=== PATIENT | male | born 1930 | race Caucasian/White ===

== ENCOUNTER 2021-09-30 09:08 | Emergency (ER) | payer OTHER ==
--- OUTSIDE RECORDS SUMMARY | 2021-09-30 09:12 | XMS REPORT | Continuity of Care Document ---
:1930 Author Organization [facility] Address [address] [place] [address] Dr. Vincent [address] [place] [id number] Care Team Providers Name Role Phone JOSE A Attending Clinician Unavailable [facility] Admitting Clinician Unavailable Problems This patient has no known problems. Allergies, Adverse Reactions, Alerts This patient has no known allergies or adverse reactions. Medications This patient has no known medications. Procedures This patient has no known procedures. Encounters Start End Encounter Admission Attending Care Care Encounter Source Date/Time Date/Time Type Type Clinicians Facility Department ID 2020-03-13 2020-03-13 Outpatient JOSE A [facility] [id number] [place] 00:00:00 00:00:00 ABE [address] Results This patient has no known results.
--- NOTE | 2021-09-30 10:27 | RAD REPORT ---
EXAM DESCRIPTION: RAD - Hip Left 2 View - 09/30/2021 10:14 am CLINICAL HISTORY: PAIN COMPARISON: No comparisons FINDINGS: No acute fracture. No malalignment. No significant focal degenerative changes. IMPRESSION: No acute osseous abnormality involving the left hip.
--- NOTE | 2021-09-30 10:45 | EDPHYS ---
Physician Documentation [facility] Name: Victor M Rizo Age: 89 yrs Sex: Male : 1930 Arrival Date: 09/30/2021 Time: 09:11 Bed 4 Private MD: Victor M Dash T ED Physician Abimael Fraser HPI: 09/30 10:44 This 89 yrs old Male presents to ER via Wheelchair with complaints of Hip Pain. ma2 10:44 The patient or guardian reports pain. The complaints affect the left leg. Associated ma2 signs and symptoms: Pertinent negatives: anorexia, dizziness, fever, incontinence. Severity of symptoms: At their worst the symptoms were mild, in the emergency department the symptoms are unchanged. The patient has not experienced similar symptoms in the past. 10:44 No trauma. ma2 Historical: - PMHx: 09:20 Hypertension; Hypothyroidism; al4 - Immunization history:: Adult Immunizations up to date, Client reports receiving the 2nd dose of the Covid vaccine, Flu vaccine is up to date. - Social history:: Smoking status: Patient denies any tobacco usage or history of. - Family history:: not pertinent. ROS: 10:44 Constitutional: Negative for fever, chills, and weight loss. ma2 10:44 All other systems are negative. Exam: 10:44 Constitutional: This is a well developed, well nourished patient who is awake, alert, ma2 and in no acute distress. Chest/axilla: Normal chest wall appearance and motion. Nontender with no deformity. No lesions are appreciated. Cardiovascular: Regular rate and rhythm with a normal S1 and S2. No gallops, murmurs, or rubs. Normal PMI, no JVD. No pulse deficits. Respiratory: Lungs have equal breath sounds bilaterally, clear to auscultation and percussion. No rales, rhonchi or wheezes noted. No increased work of breathing, no retractions or nasal flaring. Abdomen/GI: Soft, non-tender, with normal bowel sounds. No distension or tympany. No guarding or rebound. No evidence of tenderness throughout. Skin: Warm, dry with normal turgor. Normal color with no rashes, no lesions, and no evidence of cellulitis. MS/ Extremity: Pulses equal, no cyanosis. Neurovascular intact. Full, normal range of motion. Neuro: Awake and alert, GCS 15, oriented to person, place, time, and situation. Cranial nerves II-XII grossly intact. Motor strength 5/5 in all extremities. Sensory grossly intact. Cerebellar exam normal. Normal gait. Vital Signs: 09:27 BP 135 / 70; Pulse 96; Resp 18; Temp 98.9; Pulse Ox 99% ; Weight 63.05 kg; Height 6 ft. al4 (182.88 cm); Pain 5/10; 10:14 BP 125 / 66; Pulse 87; Resp 18 S; Pulse Ox 98% on R/A; al4 10:30 BP 139 / 93; Pulse 87; Resp 18 S; Pulse Ox 99% on R/A; al4 09:27 Body Mass Index 18.85 (63.05 kg, 182.88 cm) al4 MDM: 09:25 Patient medically screened. ma2 10:44 Differential diagnosis: bursitis, arthritis, strain. Data reviewed: vital signs, nurses ma2 notes, EMS record. Counseling: I had a detailed discussion with the patient and/or guardian regarding: the historical points, exam findings, and any diagnostic results supporting the discharge/admit diagnosis, the presence of at least one elevated blood pressure reading (>120/80) during this emergency department visit, the need for outpatient follow up. Response to treatment: the patient's symptoms have markedly improved after treatment. 09/30 09:30 Order name: XRAY Hip LEFT 2 view; Complete Time: 10:29 ma2 Administered Medications: No medications were administered Disposition Summary: 09/30/21 10:45 Discharge Ordered Location: Home ma2 Condition: Stable ma2 Diagnosis - Pain in left hip ma2 Followup: ma2 - With: Private Physician - When: Tomorrow - Reason: Wound Recheck, If symptoms return Discharge Instructions: - Discharge Summary Sheet ma2 - Joint Pain ma2 - Musculoskeletal Pain ma2 Forms: - Medication Reconciliation Form ma2 - Thank You Letter ma2 - Antibiotic Education ma2 - Prescription Opioid Use ma2 Prescriptions: - Cyclobenzaprine 10 mg Oral Tablet - take 1 tablet by ORAL route every 8 hours As needed; 30 tablet; Refills: 0, ma2 Product Selection Permitted - Diclofenac Sodium 75 mg Oral Tablet Sustained Release - take 1 tablet by ORAL route 2 times per day; 30 tablet; Refills: 0, Product ma2 Selection Permitted Signatures: Dispatcher [employer] Abimael Ball MD MD ma2 Eliud Kline
--- NOTE | 2021-09-30 10:45 | ER ---
Nurse's Notes [facility] Name: Victor M Rizo Age: 89 yrs Sex: Male : 1930 Arrival Date: 09/30/2021 Time: 09:11 Bed 4 Private MD: Victor M Dash T Diagnosis: Pain in left hip Presentation: 09/30 09:17 Chief complaint: Patient states: "I woke up a couple nights ago and noticed my hip was al4 hurting." Patient states it hurts more with activity at a 10/10, but stays at a 5/10 pain at rest. Denies recent injury or fall. Coronavirus screen: Vaccine status: Patient reports receiving the 2nd dose of the covid vaccine. At this time, the client does not indicate any symptoms associated with coronavirus-19. Ebola Screen: No symptoms or risks identified at this time. Initial Sepsis Screen: Does the patient meet any 2 criteria? No. Patient's initial sepsis screen is negative. Does the patient have a suspected source of infection? No. Patient's initial sepsis screen is negative. Risk Assessment: Do you want to hurt yourself or someone else? Patient reports no desire to harm self or others. 09:17 Method Of Arrival: Wheelchair al4 09:17 Acuity: MAHOGANY 3 al4 09:17 Onset of symptoms was September 28, 2021. al4 Historical: - PMHx: 09:20 Hypertension; Hypothyroidism; al4 - Immunization history:: Adult Immunizations up to date, Client reports receiving the 2nd dose of the Covid vaccine, Flu vaccine is up to date. - Social history:: Smoking status: Patient denies any tobacco usage or history of. - Family history:: not pertinent. Screenin:28 Abuse screen: Denies threats or abuse. Nutritional screening: No deficits noted. al4 Tuberculosis screening: No symptoms or risk factors identified. Fall Risk No fall in past 12 months (0 pts). No IV (0 pts). Ambulatory Aid- None/Bed Rest/Nurse Assist (0 pts). Gait- Normal/Bed Rest/Wheelchair (0 pts) Mental Status- Oriented to own ability (0 pts). Total Jose Fall Scale indicates No Risk (0-24 pts). Assessment: 09:29 General: Appears in no apparent distress. comfortable, Behavior is calm, cooperative. al4 Pain: Complains of pain in left hip Pain currently is 5 out of 10 on a pain scale. at worst was 10 out of 10 on a pain scale. Aggravated by increased activity. Neuro: Level of Consciousness is awake, alert, obeys commands, Oriented to person, place, time, situation. Cardiovascular: Heart tones present Capillary refill < 3 seconds Patient's skin is warm and dry. Respiratory: Airway is patent Respiratory effort is even, unlabored, Respiratory pattern is regular, symmetrical, Breath sounds are clear bilaterally. GI: No signs and/or symptoms were reported involving the gastrointestinal system. Bowel sounds present X 4 quads. : No signs and/or symptoms were reported regarding the genitourinary system. EENT: No signs and/or symptoms were reported regarding the EENT system. Derm: No signs and/or symptoms reported regarding the dermatologic system. Musculoskeletal: Reports pain in L hip since Sunday . Denies fall or known injury. 10:16 Reassessment: No changes from previously documented assessment. Patient and/or family al4 updated on plan of care and expected duration. Pain level reassessed. Patient is alert, oriented x 3, equal unlabored respirations, skin warm/dry/pink. Vital Signs: 09:27 BP 135 / 70; Pulse 96; Resp 18; Temp 98.9; Pulse Ox 99% ; Weight 63.05 kg; Height 6 ft. al4 (182.88 cm); Pain 5/10; 10:14 BP 125 / 66; Pulse 87; Resp 18 S; Pulse Ox 98% on R/A; al4 10:30 BP 139 / 93; Pulse 87; Resp 18 S; Pulse Ox 99% on R/A; al4 09:27 Body Mass Index 18.85 (63.05 kg, 182.88 cm) al4 ED Course: 09:11 Patient arrived in ED. mr 09:11 Victor M Dash MD is Private Physician. mr 09:20 Triage completed. al4 09:25 Abimael Fraser MD is Attending Physician. ma2 09:28 Arm band placed on. al4 09:28 Patient has correct armband on for positive identification. Placed in gown. Bed in low al4 position. Call light in reach. Side rails up X 1. family w patient. Pulse ox on. NIBP on. Door closed. Noise minimized. Warm blanket given. 10:13 Eliud Kline is Primary Nurse. al4 10:14 XRAY Hip LEFT 2 view In Process Unspecified. EDMS 10:57 No provider procedures requiring assistance completed. Patient did not have IV access al4 during this emergency room visit. Administered Medications: No medications were administered Outcome: 10:45 Discharge ordered by . ma2 10:57 Discharged to home via wheelchair, with family. al4 10:57 Condition: stable 10:57 Discharge instructions given to patient, family, Instructed on discharge instructions, follow up and referral plans. medication usage, Demonstrated understanding of instructions, follow-up care, medications, Prescriptions given X 2. 10:57 Patient left the ED. al4 Signatures: Dispatcher [employer] [facility] JovanySaima Mohammad, MD MD ma2 Ledbetter, Alexis al4 Corrections: (The following items were deleted from the chart) 09:45 09:27 BP 135 / 70; Pulse 96bpm; Resp 18bpm; Pulse Ox 99%; Temp 98.9F; Pain 5/10; al4 al4
[2021-09-30 11:03] VITALS: TEMP 98.9
[2021-09-30 11:06] VITALS: BP 139/93; O2SAT 99
== END 2021-09-30 10:57 | disposition home or self-care (01) ==
LOC: ER 09:08
DX: M25.552 Pain in left hip (principal)
CPT/HCPCS: 99283

== ENCOUNTER 2021-10-30 23:49 | Emergency (ER) | payer OTHER ==
--- OUTSIDE RECORDS SUMMARY | 2021-10-30 23:52 | XMS REPORT | Continuity of Care Document ---
:1930 Author Organization [facility] Address [address] [place] [address] Dr. Vincent [address] [place] [address] Care Team Providers Name Role Phone JOSE A Attending Clinician Unavailable [facility] Admitting Clinician Unavailable Problems This patient has no known problems. Allergies, Adverse Reactions, Alerts This patient has no known allergies or adverse reactions. Medications This patient has no known medications. Procedures This patient has no known procedures. Encounters Start End Encounter Admission Attending Care Care Encounter Source Date/Time Date/Time Type Type Clinicians Facility Department ID 2020-03-13 2020-03-13 Outpatient JOSE A [facility] [id number] [place] 00:00:00 00:00:00 ABE [address] Results This patient has no known results.
[2021-10-31] MEDS ORDERED: MORPHINE 4 MG/ML SYR ONE (00:47)
[2021-10-31 00:58] LABS: Absolute Lymphocytes (CBC) 0.7 K/uL (0.7-4.9); Hematocrit 36.2 % (39.6-49.0); Lymphocytes % 6.1 % (15.3-44.8); MPV 8.8 fL (7.6-11.3); RBC Red Blood Cell Count 3.77 M/uL (4.33-5.43)
[2021-10-31 01:06] LABS: Albumin 2.5 g/dL (3.4-5.0); Bilirubin Total 0.6 mg/dL (0.2-1.0); Potassium 4.1 mmol/L (3.5-5.1); Protein, Total 7.7 g/dL (6.4-8.2)
--- NOTE | 2021-10-31 01:45 | EDPHYS ---
Physician Documentation [facility] Name: Victor M Rizo Age: 89 yrs Sex: Male : 1930 Arrival Date: 10/30/2021 Time: 23:54 Bed 12 Private MD: ED Physician Chris Paez HPI: 10/31 00:25 This 89 yrs old Male presents to ER via EMS with complaints of Back Pain. pm1 00:25 The patient presents with pain that is chronic, with no known mechanism of injury. The pm1 symptoms are located in the low back. Onset: The symptoms/episode began/occurred 1 month(s) ago. The pain does not radiate. Associated signs and symptoms: Pertinent negatives:. The problem was sustained from a chronic condition. Modifying factors: The patient symptoms are alleviated by nothing, the patient symptoms are aggravated by movement. Severity of symptoms: in the emergency department the symptoms are actually worse. The patient has experienced similar episodes in the past, multiple times. The patient has not recently seen a physician. Patient reports 89-year-old patient presenting to the ER with low back pain. He states since last visit here for hip pain he has had low back pain, right shoulder, and left shoulder pain for the past month. Patient attributes his pain to arthritis. No injury, falls, or trauma. Historical: - Home Meds: 00:10 Levothroid 88 mcg Oral tab [Active]; Plavix 75 mg Oral tab once daily [Active]; sv1 pravastatin 40 mg Oral tab once daily [Active]; quinapril 20 mg Oral tab 1 tab once daily [Active]; sucralfate 1 gram Oral tab 1 tab 4 times per day [Active]; - PMHx: 00:10 Hypertension; Hypothyroidism; sv1 - Immunization history:: Client reports receiving the 2nd dose of the Covid vaccine. - Social history:: Patient/guardian denies using Smoking status: Patient denies any tobacco usage or history of. ROS: 00:25 Constitutional: Negative for fever, chills, and weight loss, Cardiovascular: Negative pm1 for chest pain, palpitations, and edema, Respiratory: Negative for shortness of breath, cough, wheezing, and pleuritic chest pain, Abdomen/GI: Negative for abdominal pain, nausea, vomiting, diarrhea, and constipation. 00:25 Skin: Negative for injury, rash, and discoloration. 00:25 Back: Positive for of the low back area, pain. 00:25 MS/extremity: Positive for of the right and left shoulder pain, Negative for injury or acute deformity, decreased range of motion, deformity. 00:25 All other systems are negative. Exam: 00:25 Constitutional: This is a well developed, well nourished patient who is awake, alert, pm1 and in no acute distress. Head/Face: Normocephalic, atraumatic. 00:25 Skin: Warm, dry with normal turgor. Normal color with no rashes, no lesions, and no evidence of cellulitis. MS/ Extremity: Pulses equal, no cyanosis. Neurovascular intact. Full, normal range of motion. 00:25 Eyes: Exam is negative for acute changes, Extraocular movements: no acute changes, Conjunctiva: no acute changes, no injection. 00:25 ENT: Exam is negative for acute changes, Mouth: no acute changes, Lips: normal, moist, Oral mucosa: normal, pink and intact, moist. 00:25 Cardiovascular: Exam negative for acute changes, Rate: normal, Rhythm: regular, Pulses: no pulse deficits are appreciated, Heart sounds: normal. 00:25 Respiratory: Exam negative for acute changes, respiratory distress, shortness of breath, Breath sounds: are clear throughout. 00:25 Back: vertebral tenderness, is appreciated at lumbar spine, muscle spasm, is not present. 00:25 Neuro: Exam negative for acute changes, Orientation: is normal, Mentation: is normal, Motor: is normal, moves all fours, Sensation: is normal, no obvious gross deficits. Vital Signs: 00:04 BP 134 / 68; Pulse 95 LA; Resp 16 S; Temp 98.3(O); Pulse Ox 94% on R/A; sv1 02:35 BP 124 / 66 LA Supine (auto/reg); Pulse 97 MON; Resp 16 S; Pulse Ox 95% on R/A; Pain sv1 4/10; MDM: 00:17 Patient medically screened. pm1 00:23 Data reviewed: vital signs. pm1 01:43 Counseling: I had a detailed discussion with the patient and/or guardian regarding: the pm1 historical points, exam findings, and any diagnostic results supporting the discharge/admit diagnosis, lab results, radiology results, the need for outpatient follow up, a family practitioner, to return to the emergency department if symptoms worsen or persist or if there are any questions or concerns that arise at home. 10/31 00:25 Order name: CBC with Diff pm1 10/31 00:25 Order name: CMP; Complete Time: : pm1 10/31 00:25 Order name: CT Lumbar Spine Wo Con pm1 10/31 00:25 Order name: CBC with Automated Diff; Complete Time: : EDMS 10/31 00:27 Order name: Shoulder Right (2 View) XRAY pm1 10/31 00:27 Order name: Shoulder Left (2 View) XRAY pm1 10/31 00:25 Order name: IV Saline Lock; Complete Time: 00:43 pm1 Administered Medications: 00:54 Drug: morphine 4 mg Route: IVP; Site: right antecubital; sv1 01:34 Follow up: Response: No adverse reaction; Pain is decreased sv1 02:34 Follow up: Response: No adverse reaction; Pain is decreased sv1 01:50 Drug: Lidoderm Patch 5 % (700 mg/patch) 1 patches Route: Topical; Site: affected area; sv1 02:34 Follow up: Response: No adverse reaction; Pain is decreased sv1 Disposition: 03:22 Co-signature as Attending Physician, Chris Paez MD. pkl Disposition Summary: 10/31/21 01:45 Discharge Ordered Location: Home pm1 Problem: new pm1 Symptoms: have improved pm1 Condition: Stable pm1 Diagnosis - Low back pain - degenerative disc disease pm1 Followup: pm1 - With: Emergency Department - When: As needed - Reason: Worsening of condition Followup: pm1 - With: Private Physician - When: 2 - 3 days - Reason: Recheck today's complaints, Continuance of care, Re-evaluation by your physician Discharge Instructions: - Discharge Summary Sheet pm1 - Degenerative Disk Disease pm1 - What You Need to Know About Chronic Back Pain pm1 Forms: - Medication Reconciliation Form pm1 - Thank You Letter pm1 - Antibiotic Education pm1 - Prescription Opioid Use pm1 Prescriptions: - Tylenol-Codeine #3 300 mg-30 mg Oral - take 1 tablet by ORAL route every 8 hours As needed; 12 tablet; Refills: 0, pm1 Product Selection Permitted - Lidoderm 5 % Topical adhesive patch,medicated - apply 1 patch by TRANSDERMAL route once daily As needed 12 hours on and 12 pm1 hours off in a 24 hour period; 10 patch; Refills: 0, Product Selection Permitted Signatures: Dispatcher [employer] Chris Segovia MD MD pkl Kodak Denis, TARIFF COMPILING CLERK TARIFF COMPILING CLERK pm1 Harpreet Day, RN RN sv1
--- NOTE | 2021-10-31 01:45 | ER ---
Nurse's Notes [facility] Name: Victor M Rizo Age: 89 yrs Sex: Male : 1930 Arrival Date: 10/30/2021 Time: 23:54 Bed 12 Private MD: Diagnosis: Low back pain-degenerative disc disease Presentation: 10/31 00:08 Chief complaint: Patient states: low back and right shoulder pain 07/17. Coronavirus sv1 screen: Client denies travel out of the [place] in the last 14 days. Ebola Screen: No symptoms or risks identified at this time. Initial Sepsis Screen: Does the patient meet any 2 criteria? No. Patient's initial sepsis screen is negative. Risk Assessment: Do you want to hurt yourself or someone else? Patient reports no desire to harm self or others. Onset of symptoms was October 24, 2021. 00:08 Acuity: MAHOGANY 3 sv1 00:08 Method Of Arrival: EMS: [facility] sv1 00:12 Initial Sepsis Screen: Does the patient have a suspected source of infection? No. sv1 Patient's initial sepsis screen is negative. Triage Assessment: 00:04 General: Appears distressed, uncomfortable. General: Behavior is cooperative, sv1 appropriate for age. Pain: Complains of pain in back. Musculoskeletal: pain only. Historical: - Home Meds: 00:10 Levothroid 88 mcg Oral tab [Active]; Plavix 75 mg Oral tab once daily [Active]; sv1 pravastatin 40 mg Oral tab once daily [Active]; quinapril 20 mg Oral tab 1 tab once daily [Active]; sucralfate 1 gram Oral tab 1 tab 4 times per day [Active]; - PMHx: 00:10 Hypertension; Hypothyroidism; sv1 - Immunization history:: Client reports receiving the 2nd dose of the Covid vaccine. - Social history:: Patient/guardian denies using Smoking status: Patient denies any tobacco usage or history of. Screenin:07 Abuse screen: Denies threats or abuse. Nutritional screening: No deficits noted. sv1 Tuberculosis screening: No symptoms or risk factors identified. Fall Risk Fall in past 12 months (25 points). Secondary diagnosis (15 points) No IV (0 pts). Ambulatory Aid- None/Bed Rest/Nurse Assist (0 pts). Gait- Weak (10 pts.). Mental Status- Oriented to own ability (0 pts). Total Jose Fall Scale indicates Low Risk Score (25-44 pts). Fall prevention measures have been instituted. Side Rails Up X 2 Placed close to Nursing Station Frequent Obs/Assesments occuring. Assessment: 00:13 Reassessment: DIONNE. CC low back and right shoulder pain. He was seen here about a week sv1 ago for the same complaint.. 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 02:37 Neuro: No deficits noted. sv1 02:37 Reassessment: All labs and imaging completed. Cleared for discharge to home by the 1 provider. Transferred via wheelchair van service. . Vital Signs: 00:04 BP 134 / 68; Pulse 95 LA; Resp 16 S; Temp 98.3(O); Pulse Ox 94% on R/A; sv1 02:35 BP 124 / 66 LA Supine (auto/reg); Pulse 97 MON; Resp 16 S; Pulse Ox 95% on R/A; Pain sv1 410; ED Course: 10/30 23:54 Patient arrived in ED. lp1 10/31 00:03 Kodak Denis NP is PHCP. pm1 00:03 Chris Paez MD is Attending Physician. pm1 00:04 Harpreet Day, ZACHARY is Primary Nurse. sv1 00:04 Arm band placed on left wrist. Patient placed on a stretcher. sv1 00:07 Patient has correct armband on for positive identification. Bed in low position. Call sv1 light in reach. Side rails up X2. 00:10 Triage completed. sv1 00:43 CBC with Automated Diff Sent. sv1 00:43 CMP Sent. sv1 00:43 CBC with Diff Sent. sv1 00:55 CT Lumbar Spine Wo Con In Process Unspecified. EDMS 01:04 Shoulder Right (2 View) XRAY In Process Unspecified. EDMS 01:04 Shoulder Left (2 View) XRAY In Process Unspecified. EDMS 02:35 No provider procedures requiring assistance completed. IV discontinued. sv1 Administered Medications: 00:54 Drug: morphine 4 mg Route: IVP; Site: right antecubital; sv1 01:34 Follow up: Response: No adverse reaction; Pain is decreased sv1 02:34 Follow up: Response: No adverse reaction; Pain is decreased sv1 01:50 Drug: Lidoderm Patch 5 % (700 mg/patch) 1 patches Route: Topical; Site: affected area; sv1 02:34 Follow up: Response: No adverse reaction; Pain is decreased sv1 Outcome: 01:45 Discharge ordered by MD. pm1 02:35 Discharged to home via wheelchair. sv1 02:35 Condition: improved 02:35 Discharge instructions given to patient. 02:42 Patient left the ED. sv1 Signatures: Dispatcher [employer] Linda Martinez RN RN lp1 Kodak Denis, SAMMI CAREER EDUCATION TEACHER pm1 Harpreet Day RN RN sv1
[2021-10-31] MEDS ORDERED: LIDOCAINE 4% PATCH ONE (02:11)
--- NOTE | 2021-10-31 08:28 | RAD REPORT ---
EXAM DESCRIPTION: RAD - Shoulder Right 2 View - 10/31/2021 1:04 am CLINICAL HISTORY: PAIN COMPARISON: No comparisons FINDINGS/IMPRESSION: No acute fracture. Slightly high-riding humeral head. Moderate right AC joint d egenerative changes. Soft tissue fullness along the superior aspect of the AC joint may be due to a j oint effusion and underlying rotator cuff pathology.
--- NOTE | 2021-10-31 08:28 | RAD REPORT ---
EXAM DESCRIPTION: RAD - Shoulder Left 2 View - 10/31/2021 1:04 am CLINICAL HISTORY: PAIN COMPARISON: No comparisons FINDINGS/IMPRESSION: No acute fracture. No malalignment. Mild left AC joint degenerative changes.
--- NOTE | 2021-10-31 14:16 | RAD REPORT ---
EXAM DESCRIPTION: CT - Spine Lumbar Wo Con - 10/31/2021 3:07 am CLINICAL HISTORY: PAIN COMPARISON: None TECHNIQUE: Contiguous axial images of lumbar spine were obtained utilizing 2 mm slice thickness at 2 mm interval reconstruction. In addition multiplanar reformats in the sagittal and coronal plane were generated and reviewed This exam was performed according to our departmental dose-optimization protocol, which includes auto mated exposure control, adjustment of the mA and/or kV according to patient size and/or use of iterat basim reconstruction technique. FINDINGS: There is diffuse bony osteopenia. There is lytic the anatomic alignment of the lumbar spin e. Vertebral body height is preserved without evidence of acute fracture or subluxation. No retrope ritoneal or paraspinal abnormality is seen. L1-2: Unremarkable L2-3: Small posterior osteophyte complex with the broad-based bulge and mild to moderate spinal can al narrowing L3-4: Degenerative disc disease with vacuum effect, posterior osteophyte complex broad-based bulge posterior facet hypertrophy moderate spinal canal narrowing L4-5: Degenerative disc disease with vacuum effect, posterior osteophyte complex and broad-based bu lge posterior facet hypertrophy hypertrophy ligamentum flavum with moderate to severe spinal canal na rrowing L5-S1: Small broad-based bulge with no compromise of the spinal canal and/or neural foramina. The visualized portions of the sacroiliac joint demonstrate degenerative changes. Visualized portions of the sacrum demonstrate to be unremarkable IMPRESSION: No acute fracture or subluxation of the lumbar spine. Diffuse bony osteopenia. Multilevel degenerative disc disease as described above. Electronically signed by: Ari Cox MD 10/31/2021 1:06 AM ENTERPRISE ARCHITECT Due to temporary technical issues with the PACS/Fluency reporting system, reports are being signed by the in house radiologist without review as a courtesy to ensure prompt reporting. The interpreting r adiologist is fully responsible for the content of the report.
[2021-10-31 18:24] VITALS: TEMP 98.3
[2021-10-31 18:25] VITALS: BP 124/66; O2SAT 95
== END 2021-10-31 02:42 | disposition home or self-care (01) ==
LOC: ER 23:49
DX: M51.36 Other intervertebral disc degeneration, lumbar region (principal); I10 Essential (primary) hypertension; E03.9 Hypothyroidism, unspecified; Z79.01 Long term (current) use of anticoagulants
CPT/HCPCS: 36415; 72131; 80053; 85025; 96374; 99284

== ENCOUNTER 2021-11-02 16:16 | Inpatient (IN) | payer OTHER ==
--- OUTSIDE RECORDS SUMMARY | 2021-11-02 16:18 | XMS REPORT | Continuity of Care Document ---
:1930 Author Organization [facility] Address [address] [place] [address] Dr. Vincent [address] [place] [id number] Care Team Providers Name Role Phone JOSE A Attending Clinician Unavailable [facility] Admitting Clinician Unavailable Problems This patient has no known problems. Allergies, Adverse Reactions, Alerts This patient has no known allergies or adverse reactions. Medications This patient has no known medications. Procedures This patient has no known procedures. Encounters Start End Encounter Admission Attending Care Care Encounter Source Date/Time Date/Time Type Type Clinicians Facility Department ID 2020-03-13 2020-03-13 Outpatient JOSE A [facility] [id number] [place] 00:00:00 00:00:00 ABE [address] Results This patient has no known results.
--- NOTE | 2021-11-02 16:55 | RAD REPORT ---
EXAM DESCRIPTION: RAD - Chest Single View - 11/02/2021 4:44 pm CLINICAL HISTORY: ams Chest pain. COMPARISON: Chest Single View dated 10/24/2017; Chest Single View dated 01/26/2016; CHEST PA AND LAT 2 VIEW dated 07/06/2015; CHEST PA AND LAT 2 VIEW dated 07/01/2013 FINDINGS: Portable technique limits examination quality. The lungs are mildly emphysematous but grossly clear. The heart is normal in size. No displaced fract ures. IMPRESSION: Mild COPD.
[2021-11-02 17:25] LABS: Protime INR 1.21
[2021-11-02 17:28] LABS: Absolute Lymphocytes (CBC) 0.7 K/uL (0.7-4.9); Hematocrit 38.2 % (39.6-49.0); Lymphocytes % 6.4 % (15.3-44.8); RBC Red Blood Cell Count 3.97 M/uL (4.33-5.43)
[2021-11-02] MEDS ORDERED: NA CHLORIDE 0.9% 250 ML ONE (17:53)
[2021-11-02 18:17] LABS: Albumin 2.1 g/dL (3.4-5.0); Bilirubin Direct 0.2 mg/dL (0-0.2); Bilirubin Total 0.4 mg/dL (0.2-1.0); Potassium 3.8 mmol/L (3.5-5.1); Protein, Total 7.4 g/dL (6.4-8.2)
[2021-11-02 19:01] LABS: Troponin High Sensitivity 65.2 pg/mL (<58.9)
--- NOTE | 2021-11-02 19:12 | ER ---
Nurse's Notes [facility] Name: Victor M Rizo Age: 89 yrs Sex: Male : 1930 Arrival Date: 11/02/2021 Time: 16:27 Bed 30 Private MD: Diagnosis: Dehydration;Elevated Troponin Presentation: 11/02 16:28 Chief complaint: EMS states: DEHYDRATION AND LUMBAR PAIN. Coronavirus screen: At this bp time, the client does not indicate any symptoms associated with coronavirus-19. Ebola Screen: No symptoms or risks identified at this time. Initial Sepsis Screen: Does the patient meet any 2 criteria? HR > 90 bpm. No. Patient's initial sepsis screen is negative. Does the patient have a suspected source of infection? No. Patient's initial sepsis screen is negative. Risk Assessment: Do you want to hurt yourself or someone else? Patient reports no desire to harm self or others. Onset of symptoms is unknown. Care prior to arrival: IV initiated. 22 GA, in the right forearm. 16:28 Method Of Arrival: EMS: [facility] bp 16:28 Acuity: MAHOGANY 3 bp Triage Assessment: 16:31 General: Appears in no apparent distress. comfortable, Behavior is calm, cooperative, bp appropriate for age. Pain: Complains of pain in low back area. EENT: No deficits noted. Neuro: Level of Consciousness is awake, alert, obeys commands, Oriented to Appropriate for age. Cardiovascular: No deficits noted. Respiratory: No deficits noted. GI: No signs and/or symptoms were reported involving the gastrointestinal system. : Reports pain in lower back. Derm: No deficits noted. Musculoskeletal: No deficits noted. Historical: - Allergies: 16:30 No Known Allergies; bp - Home Meds: 16:30 Levothroid 88 mcg Oral tab [Active]; Plavix 75 mg Oral tab once daily [Active]; bp pravastatin 40 mg Oral tab once daily [Active]; quinapril 20 mg Oral tab 1 tab once daily [Active]; sucralfate 1 gram Oral tab 1 tab 4 times per day [Active]; - PMHx: 16:30 Hypothyroidism; Hypertension; bp - Immunization history:: Adult Immunizations up to date. - Social history:: Smoking status: Patient denies any tobacco usage or history of. Screenin:30 Abuse screen: Denies threats or abuse. Denies injuries from another. Nutritional bp screening: No deficits noted. Tuberculosis screening: No symptoms or risk factors identified. Fall Risk None identified. Assessment: 16:30 General: SEE TRIAGE NOTE. bp 18:00 Reassessment: No changes from previously documented assessment. Patient and/or family bp updated on plan of care and expected duration. Pain level reassessed. 19:19 Reassessment: Patient appears in no apparent distress at this time. General: Appears tk1 slender, well groomed, well developed, Behavior is cooperative, restless. Pain: Complains of pain in left leg Pain does not radiate. Pain currently is 7 out of 10 on a pain scale. at worst was 10 out of 10 on a pain scale. Quality of pain is described as crampy, Pain began 2-3 days ago. Is intermittent, lasting a few minutes. Alleviated by repositioning, Aggravated by increased activity. Neuro: Level of Consciousness is awake, alert, obeys commands, Oriented to person, place, time, situation, Appropriate for age Melt House Drag Operator are equal bilaterally Moves all extremities. Full function Gait is unsteady, Speech is normal, Facial symmetry appears normal. Cardiovascular: No deficits noted. Denies chest pain, Heart tones S1 S2 present Capillary refill < 3 seconds is brisk Clubbing of nail beds is absent JVD is absent Rhythm is sinus rhythm. Respiratory: No deficits noted. Airway is patent. GI: No deficits noted. : No deficits noted. EENT: No deficits noted. Derm: No deficits noted. 21:09 Reassessment: Urine specimen collected and sent to lab. tk1 Vital Signs: 16:28 BP 135 / 65; Pulse 105; Resp 19; Temp 98.5; Pulse Ox 100% ; bp 17:41 BP 109 / 73; Pulse 100; Resp 25; Pulse Ox 100% ; bp 19:05 BP 131 / 69; Pulse 96; Resp 17; Pulse Ox 100% ; bp 19:30 BP 131 / 69 RA Supine (auto/reg); Pulse 95 MON; Resp 24 S; Temp 98.6(O); Pulse Ox 100% tk1 on R/A; Pain 7/10; 20:00 BP 127 / 66 RA Supine (auto/reg); Pulse 95 MON; Resp 20 S; Pulse Ox 98% on R/A; Pain tk1 5/10; 21:00 BP 149 / 73 RA Supine (auto/reg); Pulse 96 MON; Resp 19 S; Pulse Ox 96% ; Pain 5/10; tk1 Vitals: 21:00 Cardiac Rhythm Assessment Regular Sinus rhythm. tk1 ED Course: 16:27 Patient arrived in ED. bp 16:28 Asad Shine PA is PHCP. jmm 16:29 Abimael Fraser MD is Attending Physician. jmm 16:30 Triage completed. bp 16:30 Arm band placed on. bp 16:30 Patient has correct armband on for positive identification. bp 16:30 Maintain EMS IV. Dressing intact. Good blood return noted. Site clean \T\ dry. Gauge \T\ bp site: 22 GAUGE R FA. 16:33 Dustin Murray, RN is Primary Nurse. bp 16:44 XRAY Chest (1 view) In Process Unspecified. EDMS 19:11 Raghavendra Lopez PA is Hospitalizing Provider. [facility] 21:00 No provider procedures requiring assistance completed. Maintain EMS IV. Dressing tk1 intact. Site clean \T\ dry. IV is patent, is intact, Changed dressing on Flushed right forearm. Administered Medications: 17:45 Drug: NS 0.9% 250 ml Route: IV; Rate: bolus; Site: right forearm; bp Outcome: 19:11 Decision to Hospitalize by Provider. [facility] 11/03 18:08 Patient left the ED. ss Signatures: Dispatcher [employer] EDMS Asad Shine PA PA jmm Smirch, Shelby, RN RN Dustin Murray, Lainey Anaya RN tk1 Corrections: (The following items were deleted from the chart) 11/02 21:04 20:59 Reassessment: Patient appears in no apparent distress at this time. tk1 tk1 21:04 20:59 General: Appears slender, well groomed, well developed, Behavior is cooperative, tk1 restless, tk1 21:04 20:59 Pain: Complains of pain in left leg Pain does not radiate. Pain currently is 7 tk1 out of 10 on a pain scale. at worst was 10 out of 10 on a pain scale. Quality of pain is described as crampy, Pain began 2-3 days ago. Is intermittent, lasting a few minutes. Alleviated by repositioning, Aggravated by increased activity, tk1 : 20:59 Neuro: Level of Consciousness is awake, alert, obeys commands, Oriented to tk1 person, place, time, situation, Appropriate for age M[employer] Drag Operator are equal bilaterally Moves all extremities. Full function Gait is unsteady, Speech is normal, Facial symmetry appears normal, tk1 : 20:59 Cardiovascular: No deficits noted. Denies chest pain, Heart tones S1 S2 present tk1 Capillary refill < 3 seconds is brisk Clubbing of nail beds is absent JVD is absent Rhythm is sinus rhythm tk1 : 20:59 Respiratory: No deficits noted. Airway is patent tk1 tk1 : 20:59 GI: No deficits noted. tk1 tk1 : 20:59 : No deficits noted. tk1 tk1 : 20:59 EENT: No deficits noted. tk1 tk1 : 20:59 Derm: No deficits noted. tk1 tk1
--- NOTE | 2021-11-02 19:12 | EDPHYS ---
Physician Documentation [facility] Name: Victor M Rizo Age: 89 yrs Sex: Male : 1930 Arrival Date: 11/02/2021 Time: 16:27 Bed 30 Private MD: ED Physician Abimael Fraser HPI: 11/02 16:32 This 89 yrs old Male presents to ER via EMS with complaints of DEHYDRATION. jmm 16:32 Onset: The symptoms/episode began/occurred gradually, 5 day(s) ago. Modifying factors: jmm The symptoms are alleviated by nothing, the symptoms are aggravated by nothing. This is an 89 year old male with a history of hypothyroidism, htn that presents to the ED with complaints of left leg cramps. Family states the patient has had decreased PO intake with some episodes of confusion. Patient denies chest pain, sob, abdominal pain. . Historical: - Allergies: 16:30 No Known Allergies; bp - Home Meds: 16:30 Levothroid 88 mcg Oral tab [Active]; Plavix 75 mg Oral tab once daily [Active]; bp pravastatin 40 mg Oral tab once daily [Active]; quinapril 20 mg Oral tab 1 tab once daily [Active]; sucralfate 1 gram Oral tab 1 tab 4 times per day [Active]; - PMHx: 16:30 Hypothyroidism; Hypertension; bp - Immunization history:: Adult Immunizations up to date. - Social history:: Smoking status: Patient denies any tobacco usage or history of. ROS: 16:32 Cardiovascular: Negative for chest pain, palpitations, and edema, Respiratory: Negative jmm for shortness of breath, cough, wheezing, and pleuritic chest pain, Abdomen/GI: Negative for abdominal pain, nausea, vomiting, diarrhea, and constipation, Neuro: Negative for headache, weakness, numbness, tingling, and seizure. 16:32 Constitutional: Positive for poor PO intake, Negative for fever. 16:32 MS/extremity: Positive for pain. 16:32 All other systems are negative. Exam: 16:32 Constitutional: This is a well developed, well nourished patient who is awake, alert, jmm and in no acute distress. Head/Face: atraumatic. Eyes: EOMI, no conjunctival erythema appreciated ENT: Moist Mucus Membranes Neck: Trachea midline, Supple Chest/axilla: Normal chest wall appearance and motion. Cardiovascular: Regular rate and rhythm. No edema appreciated Respiratory: Normal respirations, no respiratory distress appreciated Abdomen/GI: Non distended, soft Back: Normal ROM Skin: General appearance color normal MS/ Extremity: Moves all extremities, no obvious deformities appreciated, no edema noted to the lower extremities Neuro: Awake and alert Psych: Behavior is normal, Mood is normal, Patient is cooperative and pleasant Vital Signs: 16:28 BP 135 / 65; Pulse 105; Resp 19; Temp 98.5; Pulse Ox 100% ; bp 17:41 BP 109 / 73; Pulse 100; Resp 25; Pulse Ox 100% ; bp 19:05 BP 131 / 69; Pulse 96; Resp 17; Pulse Ox 100% ; bp 19:30 BP 131 / 69 RA Supine (auto/reg); Pulse 95 MON; Resp 24 S; Temp 98.6(O); Pulse Ox 100% tk1 on R/A; Pain 7/10; 20:00 BP 127 / 66 RA Supine (auto/reg); Pulse 95 MON; Resp 20 S; Pulse Ox 98% on R/A; Pain tk1 5/10; 21:00 BP 149 / 73 RA Supine (auto/reg); Pulse 96 MON; Resp 19 S; Pulse Ox 96% ; Pain 5/10; tk1 MDM: 16:29 Patient medically screened. [facility] 19:10 Data reviewed: vital signs, nurses notes. Counseling: I had a detailed discussion with ainsley the patient and/or guardian regarding: the historical points, exam findings, and any diagnostic results supporting the discharge/admit diagnosis, lab results, radiology results, the need for further work-up and treatment in the hospital. ED course: I discussed the patient with Sandie Lopez whom accepted the patient for admission. . 11/02 16:29 Order name: Basic Metabolic Panel; Complete Time: 23:09 [facility] 11/02 16:29 Order name: CBC with Diff; Complete Time: 17:34 [facility] 11/02 16:29 Order name: LFT's; Complete Time: 23:09 [facility] 11/02 16:29 Order name: Magnesium; Complete Time: 23:09 [facility] 11/02 16:29 Order name: NT PRO-BNP; Complete Time: 23:09 [facility] 11/02 16:29 Order name: PT-INR; Complete Time: 17:28 [facility] 11/02 16:29 Order name: Troponin HS; Complete Time: 23:09 [facility] 11/02 17:29 Order name: Urine Culture [facility] 11/02 19:19 Order name: Urine Dipstick-Ancillary; Complete Time: 19:21 [facility] 11/02 22:00 Order name: COVID-19 SARS RT PCR (Document "Date of Onset" if Symptomatic) 2 11/02 23:01 Order name: T4 Free; Complete Time: 23:09 [facility] 11/02 23:01 Order name: Thyroid Stimulating Hormone; Complete Time: 23:09 [facility] 11/02 23:19 Order name: SARS-COV-2 RT PCR; Complete Time: 23:40 [facility] 11/03 02:37 Order name: CBC with Automated Diff; Complete Time: 06:49 [facility] 11/02 16:29 Order name: XRAY Chest (1 view); Complete Time: 16:57 [facility] 11/02 16:29 Order name: EKG; Complete Time: 16:30 [facility] 11/02 16:29 Order name: Cardiac monitoring; Complete Time: 16:34 [facility] 11/02 16:29 Order name: EKG - Nurse/Tech; Complete Time: 17:40 [facility] 11/02 16:29 Order name: IV Saline Lock; Complete Time: 16:34 [facility] 11/02 16:29 Order name: Labs collected and sent; Complete Time: 17:40 [facility] 11/02 16:29 Order name: O2 Per Protocol; Complete Time: 16:33 [facility] 11/02 16:29 Order name: O2 Sat Monitoring; Complete Time: 16:33 [facility] 11/03 02:41 Order name: Comprehensive Metabolic Panel; Complete Time: 06:49 [facility] 11/03 02:41 Order name: Lipid Profile; Complete Time: 06:49 [facility] 11/03 02:48 Order name: Troponin High Sensitivity; Complete Time: 06:49 [facility] 11/03 09:12 Order name: Diet Regular; Complete Time: 09:13 11/03 10:11 Order name: Troponin High Sensitivity; Complete Time: 15:04 [facility] 11/02 17:29 Order name: Labs - recollect needed: recollect green top; Complete Time: 17:54 bd Administered Medications: 17:45 Drug: NS 0.9% 250 ml Route: IV; Rate: bolus; Site: right forearm; bp Disposition Summary: 11/02/21 19:11 Hospitalization Ordered Hospitalization Status: Observation [facility] Provider: Raghavendra Lopez Condition: Stable jmm Problem: new jmm Symptoms: are unchanged jmm Bed/Room Type: Standard jmm Location: Telemetry/MedSurg (observation)(11/03/21 15:52) dw Room Assignment: [facility](11/03/21 15:52) dw Diagnosis - Dehydration jmm - Elevated Troponin jmm Forms: - Medication Reconciliation Form jmm - SBAR form jmm Addendum: 11/09/2021 18:57 Co-signature as Attending Physician, Abimael Fraser MD. m a2 Signatures: Dispatcher [employer] EDMS Andra Cedeno Diana, RN RN dw Asad Shine PA PA jmm Page, Corey, PA PA cp Peltier, Brian RN RN bp Abimael Fraser MD MD me2 Dayanara Amin RN RN eb1 Corrections: (The following items were deleted from the chart) 11/02 21:10 19:11 Telemetry/MedSurg (observation) [facility] eb1 21:10 19:11 jm eb1 11/03 15:52 11/02 21:10 [facility] ER HOLD eb1 dw 11/03 15:52 11/02 21:10 ERHOLD- eb1 dw
[2021-11-02 19:19] LABS: Urine Blood 1+ (Negative); Urine Glucose Negative (Negative); Urine Protein 2+ (Negative); Urine Specific Gravity 1.025 (1.005-1.030); Urine pH 5.5 (5.0-7.0)
--- NOTE | 2021-11-02 20:31 | P.HP ---
Certification for Inpatient Patient admitted to: Observation With expected LOS: <2 Midnights Patient will require the following post-hospital care: None Practitioner: I am a practitioner with admitting privileges, knowledge of patient current condition, hospital course, and medical plan of care. Services: Services provided to patient in accordance with Admission requirements found in Title 42 Section 412.3 of the Code of Federal Regulations Patient History Date of Service: 11/02/21 Primary Care Provider: Ekta Reason for admission: UTI, dehydration History of Present Illness: Mr. Rizo is an 89 yo M with CAD (s/p MIx4), HTN, hypothyroidism who presents with five days of decreased PO intake and confusion. He had a urin alysis at his PCP's office on Sunday and was told today that he had a UTI. He has not yet started antibiotics. He reports dehydration, and increased weakness. He also reports poor appetite, and was recently started on mirtazapine by his PCP. His son says that he has been too weak to go to the bathroom on his own, and has been wearing diapers. At bedside he is AOx4. WBC 11.6 H/H 12.4 Na 134 BUN 32 Cr 1.34 GFR 50 albumin 2.1 troponin 0.07. Denies chest pain. He received fluids in the ED, and per his son, he seems to have to returned to baseline mental status since then. Allergies No Known Allergies Allergy (Verified 10/24/17 14:57) Home Medications: Quinapril HCl [Accupril] 20 mg PO DAILY 05/07/12 Aspirin [Aspir-Low] 81 mg PO DAILY 10/24/17 Clopidogrel Bisulfate [Plavix*] 75 mg PO DAILY 10/24/17 Levothyroxine [Synthroid*] 88 mcg PO [id number] 10/24/17 Sucralfate [Carafate*] 1 gm PO QID 10/24/17 Atorvastatin Calcium [Lipitor] 80 mg PO BEDTIME #30 tab 10/26/17 Nitroglycerin [Nitrostat*] 0.4 mg SL UD PRN tab 10/26/17 - Past Medical/Surgical History Diabetic: No -: htn -: hylipidemia -: hypothyroidism -: [place] X3 -: heart stents x7 -: thomas -: restection bowel - Family History dad -: Heart disease, Hypertension mom -: Stroke, Cancer Notes: OVARIAN - Social History Smoking Status: Never smoker Alcohol use: No CD- Drugs: No Caffeine use: Yes Place of Residence: Home Review of Systems 10-point ROS is otherwise unremarkable General: Weakness Eyes: Unremarkable ENT: Unremarkable Respiratory: Unremarkable Cardiovascular: Unremarkable Gastrointestinal: Unremarkable Genitourinary: Incontinence Musculoskeletal: Leg Pain Integumentary: Unremarkable Neurological: Weakness, Confusion Lymphatics: Unremarkable Physical Examination - Physical Exam General: Alert, In no apparent distress, Oriented x3, Cooperative, Cachectic HEENT: Atraumatic, PERRLA, Mucous membr. moist/pink, EOMI, Sclerae nonicteric Neck: Supple, 2+ carotid pulse no bruit, No LAD, Without JVD or thyroid abnormality Respiratory: Clear to auscultation bilaterally, Normal air movement Cardiovascular: No edema, Regular rate/rhythm, Normal S1 S2 Gastrointestinal: Normal bowel sounds, No tenderness Musculoskeletal: No tenderness Integumentary: No rashes Neurological: Normal speech, Normal strength at 5/5 x4 extr, Normal tone, Normal affect Lymphatics: No axilla or inguinal lymphadenopathy - Studies Laboratory Data (last 24 hrs) 11/02/21 17:50: Sodium 134 L, Potassium 3.8, BUN 32 H, Creatinine 1.34 H, Glucose 120 H, Magnesium 2.0, Total Bilirubin 0.4, AST 20, ALT 19, Alkaline Phosphatase 83 11/02/21 17:15: PT 14.0 H, INR 1.21 11/02/21 17:15: WBC 11.60 H, Hgb 12.4 L, Hct 38.2 L, Plt Count 302 Assessment and Plan - Problems (Diagnosis) (1) CAD (coronary artery disease) Current Visit: Yes Status: Chronic Qualifiers: Coronary Disease-Associated Artery/Lesion type: [place] artery [place] vs. transplanted heart: [place] heart Associated angina: without angina Qualified Code(s): I25.10 - Atherosclerotic heart disease of [place] coronary artery without angina pectoris (2) HTN (hypertension) Current Visit: Yes Status: Chronic Qualifiers: Hypertension type: primary hypertension Qualified Code(s): I10 - Essential (primary) hypertension (3) Hypothyroid Current Visit: Yes Status: Chronic Qualifiers: Hypothyroidism type: unspecified Qualified Code(s): E03.9 - Hypothyroidism, unspecified (4) Dehydration Current Visit: Yes Status: Acute (5) UTI (urinary tract infection) Current Visit: Yes Status: Acute Qualifiers: Urinary tract infection type: site unspecified Hematuria presence: without hematuria Qualified Code(s): N39.0 - Urinary tract infection, site not specified (6) CKD (chronic kidney disease) Current Visit: Yes Status: Chronic Qualifiers: 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
[2021-11-02] MEDS: CEFTRIAXONE 1,000 MG in NA CHLORIDE 0.9% 50 ML IVPB SCH (22:05)
[2021-11-02] MEDS ORDERED: ONDANSETRON 4 MG/2 ML VIAL IV PRN (22:05)
[2021-11-02] MEDS: NA CHLORIDE 0.9% 1,000 ML IV SCH (22:05)
[2021-11-02] MEDS ORDERED: ACETAMINOPHEN 500 MG TAB PO PRN (22:05)
[2021-11-02] MEDS ORDERED: NA CHLORIDE 0.9% 1,000 ML ONE (22:38)
[2021-11-02] MEDS ORDERED: CEFTRIAXONE 1000 MG/VIAL ONE (22:38)
[2021-11-02] MEDS ORDERED: NA CHLORIDE 0.9% 50 ML ONE (22:39)
[2021-11-02 23:00] LABS: Thyroid Stimulating Hormone 3.57 uIU/mL (0.360-3.740)
[2021-11-03 02:33] LABS: Absolute Lymphocytes (CBC) 0.8 K/uL (0.7-4.9); Hematocrit 31.2 % (39.6-49.0); Lymphocytes % 8.4 % (15.3-44.8); MPV 8.7 fL (7.6-11.3); RBC Red Blood Cell Count 3.26 M/uL (4.33-5.43)
[2021-11-03 02:41] LABS: Bilirubin Total 0.4 mg/dL (0.2-1.0); Potassium 4.3 mmol/L (3.5-5.1); Protein, Total 7.1 g/dL (6.4-8.2)
[2021-11-03] MEDS ORDERED: LORazepam 2 MG/ML VIAL ONE (06:55)
[2021-11-03] MEDS ORDERED: CEFTRIAXONE 1000 MG/VIAL ONE (09:54)
[2021-11-03] MEDS: ENOXAPARIN 40 MG/0.4 ML SQ SCH (09:54)
[2021-11-03] MEDS: CEFTRIAXONE 1,000 MG in NA CHLORIDE 0.9% 50 ML IVPB SCH (09:54)
[2021-11-03] MEDS ORDERED: NA CHLORIDE 0.9% 50 ML ONE (09:55)
[2021-11-03] MEDS ORDERED: ENOXAPARIN 40 MG/0.4 ML SQ ONE (09:55)
[2021-11-03] MEDS: NA CHLORIDE 0.9% 1,000 ML IV SCH (11:25)
--- NOTE | 2021-11-03 18:02 | P.PN ---
Subjective Date of Service: 11/03/21 Primary Care Provider: Ekta Chief Complaint: UTI, dehydration Patient is still confused. Seen by PT and noted to have unsteady gait. He was agitated last night and needed a sitter. Physical Examination - Vital Signs Temperature: 98.8 F Blood Pressure: 135/62 Pulse: 88 Respirations: 20 Pulse Ox (%): 100 - Physical Exam General: Alert, In no apparent distress, Oriented x3 HEENT: PERRLA, Mucous membr. moist/pink, EOMI, Sclerae nonicteric Neck: Supple Respiratory: Clear to auscultation bilaterally, Normal air movement Cardiovascular: No edema, Regular rate/rhythm, Normal S1 S2 Gastrointestinal: Normal bowel sounds, Soft and benign, Non-distended, No tenderness Musculoskeletal: No swelling Integumentary: No rashes Neurological: Normal speech, Normal strength at 5/5 x4 extr, Other (Confused) - Studies Laboratory Data (last 24 hrs) 11/02/21 17:50: Sodium 134 L, Potassium 3.8, BUN 32 H, Creatinine 1.34 H, Glucose 120 H, Magnesium 2.0, Total Bilirubin 0.4, AST 20, ALT 19, Alkaline Phosphatase 83 Assessment And Plan - Current Problems (Diagnosis) (1) Dementia with behavioral disturbance Current Visit: Yes Status: Acute (2) UTI (urinary tract infection) Current Visit: Yes Status: Acute Qualifiers: Urinary tract infection type: site unspecified Hematuria presence: without hematuria Qualified Code(s): N39.0 - Urinary tract infection, site not specified (3) Acute metabolic encephalopathy Current Visit: Yes Status: Acute (4) Gait instability Current Visit: Yes Status: Acute - Plan Urine culture is pending. Continue IV Rocephin. Patient is eating well, renal function trended down. Discontinue IV fluid. Seen by PT and skilled rehab recommended. Haldol as needed for agitation and dementia with sundowning. Continue PT.
[2021-11-04] MEDS: NA CHLORIDE 0.9% 1,000 ML IV SCH ×2 (00:03→14:05)
[2021-11-04 04:22] LABS: Absolute Lymphocytes (CBC) 0.7 K/uL (0.7-4.9); Hematocrit 32.9 % (39.6-49.0); Lymphocytes % 7.4 % (15.3-44.8); MPV 8.9 fL (7.6-11.3); RBC Red Blood Cell Count 3.41 M/uL (4.33-5.43)
[2021-11-04 04:46] LABS: Albumin 1.9 g/dL (3.4-5.0); Bilirubin Total 0.4 mg/dL (0.2-1.0); Potassium 3.9 mmol/L (3.5-5.1); Protein, Total 6.9 g/dL (6.4-8.2)
[2021-11-04] MEDS ORDERED: CEFTRIAXONE 1000 MG/VIAL ONE (08:22)
[2021-11-04] MEDS ORDERED: NA CHLORIDE 0.9% 50 ML ONE (08:24)
[2021-11-04] MEDS: ENOXAPARIN 40 MG/0.4 ML SQ SCH (08:29)
[2021-11-04] MEDS: CEFTRIAXONE 1,000 MG in NA CHLORIDE 0.9% 50 ML IVPB SCH (08:30)
--- NOTE | 2021-11-04 14:37 | P.PN ---
Subjective Date of Service: 11/04/21 Primary Care Provider: Ekta Chief Complaint: UTI, dehydration Patient is still confused. No agitation last night. Physical Examination - Vital Signs Temperature: 98 F Blood Pressure: 136/65 Pulse: 85 Respirations: 18 Pulse Ox (%): 97 - Physical Exam General: In no apparent distress, Confused HEENT: Mucous membr. moist/pink Neck: JVD not distended Respiratory: Clear to auscultation bilaterally, Normal air movement Cardiovascular: No edema, Regular rate/rhythm, Normal S1 S2 Gastrointestinal: Soft and benign, Non-distended Musculoskeletal: No swelling, No tenderness Integumentary: No rashes, No cyanosis Neurological: Normal strength at 5/5 x4 extr - Studies Microbiology Data (last 24 hrs): 11/02/21 19:12 Clean Catch Urine [place] Count - Final <10,000 CFU/ML. 11/02/21 19:12 Clean Catch Urine - Final MIXED SANTI. Assessment And Plan - Current Problems (Diagnosis) (1) Dementia with behavioral disturbance Current Visit: Yes Status: Acute (2) UTI (urinary tract infection) Current Visit: Yes Status: Acute Qualifiers: Urinary tract infection type: site unspecified Hematuria presence: without hematuria Qualified Code(s): N39.0 - Urinary tract infection, site not specified (3) Acute metabolic encephalopathy Current Visit: Yes Status: Acute (4) Gait instability Current Visit: Yes Status: Acute - Plan Urine culture: Mixed growth. I doubt patient has UTI. UA with no evidence of UTI. Discontinue IV Rocephin. Patient is eating well, renal function trended down. Discontinue IV fluid. Seen by PT and skilled rehab recommended. Haldol as needed for agitation and dementia with sundowning. Continue PT.
[2021-11-04] MEDS: ENSURE ENLIVE 237 ML CAN PO SCH (21:00)
[2021-11-05] MEDS: NA CHLORIDE 0.9% 1,000 ML IV SCH ×3 (03:25→16:45)
[2021-11-05 05:55] LABS: Absolute Lymphocytes (CBC) 0.6 K/uL (0.7-4.9); Hematocrit 30.8 % (39.6-49.0); Lymphocytes % 6.7 % (15.3-44.8); MPV 8.7 fL (7.6-11.3); RBC Red Blood Cell Count 3.21 M/uL (4.33-5.43)
[2021-11-05 06:01] LABS: Potassium 3.9 mmol/L (3.5-5.1)
[2021-11-05] MEDS: ENOXAPARIN 30 MG/0.3 ML SQ SCH (08:52)
[2021-11-05] MEDS: ENSURE ENLIVE 237 ML CAN PO SCH ×2 (09:07→21:00)
--- NOTE | 2021-11-05 12:08 | P.PN ---
Subjective Date of Service: 11/05/21 Primary Care Provider: Ekta Chief Complaint: UTI, dehydration Patient has no new complaint. He states he wants to go home. He is aware he is in the hospital, knows his age, yet stating he wants to shave for yazidi today. He appears to be hallucinating No agitation reported. Physical Examination - Vital Signs Temperature: 98.3 F Blood Pressure: 135/65 Pulse: 84 Respirations: 20 Pulse Ox (%): 94 - Physical Exam General: In no apparent distress, Oriented x3 HEENT: Mucous membr. moist/pink Neck: JVD not distended Respiratory: Clear to auscultation bilaterally, Normal air movement Cardiovascular: No edema, Regular rate/rhythm, Normal S1 S2 Gastrointestinal: Soft and benign, Non-distended Musculoskeletal: No swelling, No tenderness Integumentary: No rashes, No erythema, No cyanosis Neurological: Normal strength at 5/5 x4 extr, Cranial nerves 3-12 intact - Studies Microbiology Data (last 24 hrs): 11/02/21 19:12 Clean Catch Urine [place] Count - Final <10,000 CFU/ML. 11/02/21 19:12 Clean Catch Urine - Final MIXED SANTI. Assessment And Plan - Current Problems (Diagnosis) (1) Dementia with behavioral disturbance Current Visit: Yes Status: Acute (2) UTI (urinary tract infection) Current Visit: Yes Status: Acute Qualifiers: Urinary tract infection type: site unspecified Hematuria presence: without hematuria Qualified Code(s): N39.0 - Urinary tract infection, site not specified (3) Acute metabolic encephalopathy Current Visit: Yes Status: Acute (4) Gait instability Current Visit: Yes Status: Acute - Plan Urine culture: Mixed growth. I doubt patient has UTI. UA with no evidence of UTI. Discontinue IV Rocephin. Patient is eating well, renal function trended down. Discontinue IV fluid. Seen by PT and skilled rehab recommended. Haldol as needed for agitation and dementia with sundowning. Continue PT. Disposition: Skilled rehab.
[2021-11-06] MEDS: NA CHLORIDE 0.9% 1,000 ML IV SCH ×2 (06:05→18:38)
[2021-11-06] MEDS: ENSURE ENLIVE 237 ML CAN PO SCH ×2 (09:00→21:21)
[2021-11-06] MEDS: ENOXAPARIN 30 MG/0.3 ML SQ SCH (09:43)
--- NOTE | 2021-11-06 11:56 | P.PN ---
Subjective Date of Service: 11/06/21 Primary Care Provider: Ekta Chief Complaint: UTI, dehydration Patient has no new complaint. He is more alert and interacting meaningfully today. Son by his bedside. Physical Examination - Vital Signs Temperature: 98 F Blood Pressure: 116/61 Pulse: 77 Respirations: 17 Pulse Ox (%): 96 - Physical Exam General: Alert, In no apparent distress, Oriented x3 HEENT: Mucous membr. moist/pink Neck: Supple, JVD not distended Respiratory: Clear to auscultation bilaterally, Normal air movement Cardiovascular: No edema, Regular rate/rhythm, Normal S1 S2 Gastrointestinal: Soft and benign, Non-distended, No tenderness Musculoskeletal: No swelling Integumentary: No rashes Neurological: Normal strength at 5/5 x4 extr Assessment And Plan - Current Problems (Diagnosis) (1) Dementia with behavioral disturbance Current Visit: Yes Status: Acute (2) UTI (urinary tract infection) Current Visit: Yes Status: Acute Qualifiers: Urinary tract infection type: site unspecified Hematuria presence: without hematuria Qualified Code(s): N39.0 - Urinary tract infection, site not specified (3) Acute metabolic encephalopathy Current Visit: Yes Status: Acute (4) Gait instability Current Visit: Yes Status: Acute - Plan Urine culture: Mixed growth. I doubt patient has UTI. UA with no evidence of UTI. Antibiotics discontinued. Patient is eating well. Renal function is stable. Seen by PT and skilled rehab recommended. Haldol as needed for agitation and dementia with sundowning. Continue PT. Disposition: Skilled rehab.
[2021-11-06] MEDS: CLOPIDOGREL 75 MG TABLET PO SCH (13:02)
[2021-11-06] MEDS ORDERED: HOME MED 1 EA UNK (Pravastatin Sodium [Pravastatin Sodium] 20 MG Tablet) PO SCH (21:00)
[2021-11-06] MEDS: ATORVASTATIN 10 MG TAB PO SCH (21:21)
[2021-11-07] MEDS: NA CHLORIDE 0.9% 1,000 ML IV SCH ×2 (06:47→22:05)
[2021-11-07] MEDS: LEVOTHYROXINE SOD 0.05 MG TABLET PO SCH (06:47)
[2021-11-07 07:38] VITALS: BMI 18.5
[2021-11-07] MEDS: ENOXAPARIN 30 MG/0.3 ML SQ SCH (08:57)
[2021-11-07] MEDS: ENSURE ENLIVE 237 ML CAN PO SCH ×2 (08:57→19:57)
[2021-11-07] MEDS: CLOPIDOGREL 75 MG TABLET PO SCH (08:57)
--- NOTE | 2021-11-07 11:12 | P.PN ---
Subjective Date of Service: 11/07/21 Primary Care Provider: Ekta Chief Complaint: UTI, dehydration Patient has no new complaint. He is alert and interacting meaningfully today. Son by his bedside state patient's confusion has resolved and he is back to baseline mental status. Physical Examination - Vital Signs Temperature: 97.9 F Blood Pressure: 127/64 Pulse: 77 Respirations: 16 Pulse Ox (%): 97 - Physical Exam General: Alert, In no apparent distress, Oriented x3 Neck: Supple, JVD not distended Respiratory: Clear to auscultation bilaterally, Normal air movement Cardiovascular: No edema, Regular rate/rhythm, Normal S1 S2 Gastrointestinal: Normal bowel sounds, Soft and benign, Non-distended Musculoskeletal: No swelling Integumentary: No rashes Neurological: Normal strength at 5/5 x4 extr Assessment And Plan - Current Problems (Diagnosis) (1) Dementia with behavioral disturbance Current Visit: Yes Status: Acute (2) UTI (urinary tract infection) Current Visit: Yes Status: Acute Qualifiers: Urinary tract infection type: site unspecified Hematuria presence: without hematuria Qualified Code(s): N39.0 - Urinary tract infection, site not specified (3) Acute metabolic encephalopathy Current Visit: Yes Status: Acute (4) Gait instability Current Visit: Yes Status: Acute - Plan Urine culture: Mixed growth. I doubt patient has UTI. UA with no evidence of UTI. Antibiotics discontinued. Patient is eating well. Renal function is stable. Mental status improved. Seen by PT and skilled rehab recommended. No agitation. Mildly elevated troponin secondary to demand ischemia. Continue PT. Disposition: Awaiting skilled rehab placement.
[2021-11-07] MEDS: ATORVASTATIN 10 MG TAB PO SCH (19:57)
[2021-11-08] MEDS: NA CHLORIDE 0.9% 1,000 ML IV SCH (03:55)
[2021-11-08] MEDS: LEVOTHYROXINE SOD 0.05 MG TABLET PO SCH (05:34)
[2021-11-08 06:12] LABS: Absolute Lymphocytes (CBC) 1.1 K/uL (0.7-4.9); Hematocrit 32.9 % (39.6-49.0); Lymphocytes % 12.1 % (15.3-44.8); MPV 8.3 fL (7.6-11.3); RBC Red Blood Cell Count 3.42 M/uL (4.33-5.43)
[2021-11-08 06:26] LABS: Potassium 3.9 mmol/L (3.5-5.1)
--- NOTE | 2021-11-08 06:33 | P.PN ---
Date of Service: 11/08/21 Subjective: No acute events overnight, patient's mentation back to baseline Working physical therapy, strength and energy are improving Denies any dysuria, no abdominal pain, no nausea/vomiting ROS: 10 point ROS as noted above, otherwise negative Physical exam GEN: Alert, oriented, NAD HEENT: Normal conjunctiva, sclera anicteric CV: Regular rate and rhythm, no edema Pulm: Nonlabored respirations on room air ABD: Soft, nontender, nondistended Neuro: Normal speech, normal affect Problem List UTI Dementia with behavioral disturbance Acute metabolic encephalopathy Gait instability Initial concern for UTI, urine culture with mixed growth Initially empirically on antibiotics, which have been discontinued. Remains afebrile, no leukocytosis Encephalopathy has resolved, continues with some gait instability Work-up physical therapy, skilled rehab recommended Patient and family agreeable for skilled rehab Social service consulted Mildly elevated troponin secondary to demand ischemia Appetite improved, DC IV fluids Code: Full Dispo: Awaiting skilled rehab placement Time Spent Managing Pts Care (In Minutes): 35
[2021-11-08] MEDS: CLOPIDOGREL 75 MG TABLET PO SCH (09:08)
[2021-11-08] MEDS: ENOXAPARIN 40 MG/0.4 ML SQ SCH (09:08)
[2021-11-08] MEDS: ENSURE ENLIVE 237 ML CAN PO SCH ×2 (09:13→20:51)
[2021-11-08] MEDS: ATORVASTATIN 10 MG TAB PO SCH (20:51)
[2021-11-09 04:25] VITALS: O2SAT 97
[2021-11-09] MEDS: LEVOTHYROXINE SOD 0.05 MG TABLET PO SCH (05:52)
--- NOTE | 2021-11-09 06:29 | P.PN ---
Date of Service: 11/09/21 Subjective: ROS: 10 point ROS as noted above, otherwise negative Physical exam GEN: Alert, oriented, NAD HEENT: Normal conjunctiva, sclera anicteric CV: Regular rate and rhythm, no edema Pulm: Nonlabored respirations on room air ABD: Soft, nontender, nondistended Neuro: Normal speech, normal affect Problem List UTI Dementia with behavioral disturbance Acute metabolic encephalopathy Gait instability Initial concern for UTI, urine culture with mixed growth Initially empirically on antibiotics, which have been discontinued. Remains afebrile, no leukocytosis Encephalopathy has resolved, continues with some gait instability Work-up physical therapy, skilled rehab recommended Patient and family agreeable for skilled rehab Social service consulted Mildly elevated troponin secondary to demand ischemia Appetite improved, DC IV fluids Code: Full Dispo: Awaiting skilled rehab placement Time Spent Managing Pts Care (In Minutes): 35
[2021-11-09 08:37] VITALS: BP 137/63; TEMP 97.8
[2021-11-09] MEDS: ENOXAPARIN 40 MG/0.4 ML SQ SCH (08:43)
[2021-11-09] MEDS: ENSURE ENLIVE 237 ML CAN PO SCH (08:43)
[2021-11-09] MEDS: CLOPIDOGREL 75 MG TABLET PO SCH (08:43)
--- NOTE | 2021-11-09 16:01 | P.DS ---
Admission Date: 11/03/21 Discharge Date: 11/09/21 Primary Care Provider: Ekta Disposition: TRANSFER TO SNF - REHAB Discharge Condition: GOOD Reason for Admission: UTI, dehydration Procedures: Problem List UTI, without severe sepsis Dementia with behavioral disturbance Acute metabolic encephalopathy secondary to UTI Gait instability Brief History of Present Illness: 89 yo M with CAD (s/p MIx4), HTN, hypothyroidism who presents with five days of decreased PO intake and confusion. He had a urinalysis at his PCP's office on Sunday and was told today that he had a UTI. He has not yet started antibiotics. He reports dehydration, and increased weakness. He also reports poor appetite, and was recently started on mirtazapine by his PCP. His son says that he has been too weak to go to the bathroom on his own, and has been wearing diapers. At bedside he is AOx4. WBC 11.6 H/H 12.4 Na 134 BUN 32 Cr 1.34 GFR 50 albumin 2.1 troponin 0.07. Denies chest pain. He received fluids in the ED, and per his son, he seems to have to returned to baseline mental status since then. Hospital Course: Patient was found to be confused and with generalized weakness/unsteady gait. There was concern for UTI - with UA done at PCP's office a few days prior to admission. He completed 3 days of IV Rocephin which was discontinued after urine culture grew mixed florecita. Patient remained afebrile, vitals signs stable and within normal limits. Confusion resolved and patient worked with Physical therapy who recommended SNF-rehab. On discharge recommend holding home blood pressure medication, can slowly restart / increase dosing as tolerated. His blood pressure remained normal throughout hospitalization off of his quinapril. Vital Signs/Physical Exam: Physical exam GEN: Alert, oriented, NAD HEENT: Normal conjunctiva, sclera anicteric CV: Regular rate and rhythm, no edema Pulm: Nonlabored respirations on room air ABD: Soft, nontender, nondistended Temp Pulse Resp BP Pulse Ox 97.8 F 77 16 137/63 97 11/09/21 08:00 11/09/21 08:00 11/09/21 08:00 11/09/21 08:00 11/09/21 08:00 Laboratory Data at Discharge: WBC 8.80 K/uL (4.3-10.9) 11/08/21 05:23 Hgb 11.0 g/dL (13.6-17.9) L 11/08/21 05:23 Hct 32.9 % (39.6-49.0) L 11/08/21 05:23 Plt Count 428 K/uL (152-406) H D 11/08/21 05:23 PT 14.0 SECONDS (9.5-12.5) H 11/02/21 17:15 INR 1.21 11/02/21 17:15 Sodium 136 mmol/L (136-145) 11/08/21 05:23 Potassium 3.9 mmol/L (3.5-5.1) 11/08/21 05:23 BUN 22 mg/dL (7-18) H 11/08/21 05:23 Creatinine 1.24 mg/dL (0.55-1.3) 11/08/21 05:23 Glucose 100 mg/dL (74-106) 11/08/21 05:23 Magnesium 2.0 mg/dL (1.8-2.4) 11/02/21 17:50 Total Bilirubin 0.4 mg/dL (0.2-1.0) 11/04/21 03:39 AST 17 U/L (15-37) 11/04/21 03:39 ALT 19 U/L (12-78) 11/04/21 03:39 Alkaline Phosphatase 80 U/L (45-117) 11/04/21 03:39 Triglycerides 50 mg/dL (<150) 11/03/21 02:06 Cholesterol 104 mg/dL (<200) 11/03/21 02:06 HDL Cholesterol 37 mg/dL (40-60) L 11/03/21 02:06 Cholesterol/HDL Ratio 2.81 11/03/21 02:06 Home Medications: Clopidogrel Bisulfate [Plavix*] 75 mg PO DAILY 10/24/17 Levothyroxine [Synthroid*] 50 mcg PO DAILY 11/03/21 Pravastatin Sodium 20 mg PO DAILY 11/03/21 Physician Discharge Instructions: Patient was found to be confused and with generalized weakness. There was concern for UTI - with UA done at PCP's office a few days prior to admission. He completed 3 days of IV Rocephin which was discontinued after urine culture grew mixed florecita. Patient remained afebrile, vitals signs stable and within normal limits. Confusion resolved and patient worked with Physical therapy who recomme nded SNF-rehab. On discharge recommend holding home blood pressure medication, can slowly restart / increase dosing as tolerated. His blood pressure remained normal throughout hospitalization off of his quinapril. Diet: Regular Activity: Fall precautions Followup: Victor M Dash MD [Primary Care Provider] - Time spent managing pt's care (in minutes): 45
== END 2021-11-09 11:19 | DRG 689 ==
LOC: ER 16:16 → ERHOLD 20:37 → 2ND 20:39 → ERHOLD 21:25 → OBSVTOIN 11-03 16:00 → 2ND 11-03 18:06
PROVIDERS: ADMIT Internal Medicine; ATTEND Hospitalist
DX: N39.0 Urinary tract infection, site not specified (principal); G93.41 Metabolic encephalopathy; F03.91 Unspecified dementia, unspecified severity, with behavioral disturbance; R64 Cachexia; Z68.1 Body mass index [BMI] 19.9 or less, adult; F05 Delirium due to known physiological condition; I24.8 Other forms of acute ischemic heart disease; E86.0 Dehydration; I25.10 Atherosclerotic heart disease of native coronary artery without angina pectoris; E03.9 Hypothyroidism, unspecified; I12.9 Hypertensive chronic kidney disease with stage 1 through stage 4 chronic kidney disease, or unspecified chronic kidney disease; N18.31 Chronic kidney disease, stage 3a; I25.2 Old myocardial infarction; R26.89 Other abnormalities of gait and mobility; R77.8 Other specified abnormalities of plasma proteins; Z79.890 Hormone replacement therapy; Z79.02 Long term (current) use of antithrombotics/antiplatelets; Z79.899 Other long term (current) drug therapy; Z95.5 Presence of coronary angioplasty implant and graft; Z90.49 Acquired absence of other specified parts of digestive tract; Z20.822 Contact with and (suspected) exposure to COVID-19
CPT/HCPCS: 36415; 71045; 80048; 80053; 80061; 80076; 81003; 83735; 83880; 84439; 84443; 84484; 85025; 85610; 87086; 87088; 93005; 96374; 97116; 97161; 97530; 99284; G0378; J1650; J7030; J7050; U0003